=== PATIENT | male | born 1990 ===

== ENCOUNTER 2020-12-12 10:11 | Inpatient (IN) ==
[2020-12-12] MEDS ORDERED: Haloperidol 5 mg/ml SDV IV/IM 5 MG/ML AMP ONE (10:12)
[2020-12-12] MEDS ORDERED: diPHENhydraMINE IV 50 MG/ML 1 ml VIAL (BENADRYL) ONE (10:12)
[2020-12-12] MEDS ORDERED: LORazepam 2 mg VIAL 1 ml ONE (10:12)
[2020-12-12 13:51] LABS: Urine Appearance Clear; Urine Bilirubin Negative (Negative); Urine Blood Negative (Negative); Urine Color Yellow; Urine Glucose Negative (Negative); Urine Ketones Negative (Negative); Urine Nitrite Negative (Negative); Urine Protein Negative (Negative); Urine Specific Gravity 1.014 (1.002-1.030); Urine Urobilinogen Negative (Negative)
[2020-12-12 13:55] LABS: Urine Benzodiazepine Screen None Detected (None Detect); Urine Cannabinoids Screen None Detected (None Detect); Urine Opiates Screen None Detected (None Detect)
[2020-12-12 16:28] LABS: ABS Lymphocytes 1.5 10^3/ul (1.0-4.8); ABS Monocytes 0.3 10^3/ul (0-0.8); ABS Neutrophils 3.4 10^3/ul (1.5-7.7); Eosinophil % 0.6 %; Hematocrit 46 % (42-52); Lymphocyte % 27.8 %; Mean Corpuscular HGB Conc 35 g/dL (31-36); Mean Corpuscular Hemoglobin 32 pg (27-31); Mean Corpuscular Volume 94 fL (80-94); Mean Platelet Volume 8.5 fL (7.4-10.4); Platelet Count 327 10^3/uL (150-450); Red Blood Count 4.93 10^6 /uL (4.18-5.48); Red Cell Distribution Width 13 % (10-15); White Blood Count 5.3 10^3/uL (3.5-10.8)
[2020-12-12 17:08] LABS: ALT 29 U/L (7-52); AST 25 U/L (13-39); Albumin 4.4 g/dL (3.2-5.2); Albumin/Globulin Ratio 1.4 (1-3); Alkaline Phosphatase 63 U/L (35-149); Anion Gap 8 mmol/L (2-11); Blood Urea Nitrogen 8 mg/dL (6-24); CO2 Carbon Dioxide 29 mmol/L (22-32); Calcium 9.7 mg/dL (8.6-10.3); Chloride 103 mmol/L (101-111); EGFR African American 107.7 (>60); Globulin 3.2 g/dL (2-4); Glucose 107 mg/dL (70-100); Potassium 4.4 mmol/L (3.5-5.0); Sodium 140 mmol/L (135-145); Total Protein 7.6 g/dL (6.4-8.9)
[2020-12-12 17:24] LABS: Acetaminophen < 15 mcg/mL; Alcohol, S < 13 mg/dL (<13); Salicylate < 2.50 mg/dL (<30)
[2020-12-12 17:40] LABS: TSH Ultra Thyroid Stim Horm 0.71 mcIU/mL (0.34-5.60)
[2020-12-12] MEDS ORDERED: Al Hydrox/Mg Hydrox/Simet LIQ 30 ML UDC PO PRN (21:16)
[2020-12-12 22:01] LABS: Rapid COVID-19 Molecular Undetected (Undetected)
[2020-12-13] MEDS: Cholecalciferol (VIT D3) 1,000 unit TAB PO SCH (12:06)
[2020-12-13] MEDS: CMCS: Atomoxetine 40 mg CAP (NF) PO SCH (12:06)
[2020-12-13] MEDS: Bictegravir/Emtricit/Tenofov 1 TABLET PO SCH (12:06)
[2020-12-13] MEDS: Vitamin THERAPEUTIC TAB PO SCH (12:07)
[2020-12-13] MEDS: Fluticasone NASAL SPRAY 50MCG 16 gm SPRAY BTL INTRANASAL SCH ×3 (12:07→20:29)
[2020-12-14] MEDS: CMCS: Atomoxetine 40 mg CAP (NF) PO SCH (10:05)
[2020-12-14] MEDS: Vitamin THERAPEUTIC TAB PO SCH (10:05)
[2020-12-14] MEDS: Fluticasone NASAL SPRAY 50MCG 16 gm SPRAY BTL INTRANASAL SCH ×2 (10:05→20:46)
[2020-12-14] MEDS: Cholecalciferol (VIT D3) 1,000 unit TAB PO SCH (10:05)
[2020-12-14] MEDS: Bictegravir/Emtricit/Tenofov 1 TABLET PO SCH (10:05)
[2020-12-14] MEDS ORDERED: Nicotine PATCH 21 MG/24 HR PATCH ONE (14:38)
[2020-12-14] MEDS ORDERED: Nicotine GUM 4MG FRUIT FLAVOR PO ONE (14:38)
[2020-12-14] MEDS: Nicotine GUM 4MG FRUIT FLAVOR PO PRN ×3 (16:46→21:50)
[2020-12-15] MEDS: Cholecalciferol (VIT D3) 1,000 unit TAB PO SCH (09:05)
[2020-12-15] MEDS: Vitamin THERAPEUTIC TAB PO SCH (09:07)
[2020-12-15] MEDS: CMCS: Atomoxetine 40 mg CAP (NF) PO SCH (09:07)
[2020-12-15] MEDS: Fluticasone NASAL SPRAY 50MCG 16 gm SPRAY BTL INTRANASAL SCH ×2 (09:08→21:14)
[2020-12-15] MEDS: Nicotine GUM 4MG FRUIT FLAVOR PO PRN ×4 (09:10→20:13)
[2020-12-15] MEDS: Bictegravir/Emtricit/Tenofov 1 TABLET PO SCH (09:11)
[2020-12-15] MEDS: Nicotine PATCH 21 MG/24 HR PATCH TRANSDERM SCH (15:58)
[2020-12-16] MEDS: Nicotine GUM 4MG FRUIT FLAVOR PO PRN ×2 (12:40→16:08)
[2020-12-16] MEDS: Bictegravir/Emtricit/Tenofov 1 TABLET PO SCH (12:46)
[2020-12-16] MEDS: Cholecalciferol (VIT D3) 1,000 unit TAB PO SCH (12:46)
[2020-12-16] MEDS: CMCS: Atomoxetine 40 mg CAP (NF) PO SCH (12:46)
[2020-12-16] MEDS: Vitamin THERAPEUTIC TAB PO SCH (12:47)
[2020-12-16] MEDS: Nicotine PATCH 21 MG/24 HR PATCH TRANSDERM SCH (12:47)
[2020-12-16] MEDS: Fluticasone NASAL SPRAY 50MCG 16 gm SPRAY BTL INTRANASAL SCH ×2 (12:47→22:02)
[2020-12-17] MEDS ORDERED: CMCS: Atomoxetine 40 mg CAP (NF) PO SCH (09:00)
[2020-12-17] MEDS: Nicotine PATCH 21 MG/24 HR PATCH TRANSDERM SCH (09:30)
[2020-12-17] MEDS: Vitamin THERAPEUTIC TAB PO SCH (09:31)
[2020-12-17] MEDS: Cholecalciferol (VIT D3) 1,000 unit TAB PO SCH (09:31)
[2020-12-17] MEDS: Fluticasone NASAL SPRAY 50MCG 16 gm SPRAY BTL INTRANASAL SCH (09:31)
[2020-12-17] MEDS: Bictegravir/Emtricit/Tenofov 1 TABLET PO SCH (09:31)
[2020-12-17 09:38] VITALS: BP 121/87
[2020-12-17] MEDS: Nicotine GUM 4MG FRUIT FLAVOR PO PRN (12:04)
== END 2020-12-17 12:20 | disposition home or self-care (01) | DRG 755 ==
LOC: ED 10:11 → BSU 21:05
PROVIDERS: ADMIT Psychiatry & Neurology Addiction Psychiatry; ATTEND Psychiatry & Neurology Addiction Psychiatry